=== PATIENT | female | born 1975 | race Caucasian/White ===

== ENCOUNTER 2023-03-29 10:05 | Outpatient (CLI) | payer BC, MEDICAID, SELFPAY ==
--- NOTE | 2023-03-29 10:24 | MM_ITS ---
WS: [email or web address] SCREENING DIGITAL BREAST TOMOSYNTHESIS MAMMOGRAM WITH CAD HISTORY: SCREENING COMPARISON: 01/23/2018 and 01/07/2017 Bilateral CC and MLO with tomosynthesis and synthetic mammography submitted. Computer aided detection analyzed. Breast composition: There are scattered areas of fibroglandular density. There is a new asymmetry minal suring 8 mm in the medial posterior RIGHT breast seen only on the CC projection. Otherwise RIGHT [address] is negative. There is a benign stable lymph node towards the axillary tail. LEFT breast is negativ e. IMPRESSION: MM/[place] [id number] BI-RADS: 0-Incomplete: Need additional imaging evaluation FOLLOW UP: Need Additional Imaging RIGHT breast: Spot compression views (CC and MLO). True ML. Ultrasound to follo w if abnormality persists. Attempt to get additional medial RIGHT breast on the MLO.
== END 2023-03-29 10:06 | disposition home or self-care (01) ==
PROVIDERS: PCP Family Medicine; Visit Provider Nurse Practitioner Women's Health
DX: Z12.31 Encounter for screening mammogram for malignant neoplasm of breast (principal); Z01.419 Encounter for gynecological examination (general) (routine) without abnormal findings
CPT/HCPCS: 77063; 77067; 87624

== ENCOUNTER → 2023-04-09 08:25 | Outpatient (BNVA) | payer BC, MEDICAID, SELFPAY | PROVIDERS: PCP Family Medicine; Visit Provider Nurse Practitioner Women's Health | DX: Z01.419 Encounter for gynecological examination (general) (routine) without abnormal findings (principal) | CPT/HCPCS: 80061; 82951; 84443 ==

== ENCOUNTER 2023-04-30 08:56 | Outpatient (CLI) | payer BC, MEDICAID, SELFPAY ==
--- NOTE | 2023-04-30 09:00 | MM_ITS ---
WS: [email or web address] ADDITIONAL VIEWS RIGHT MAMMOGRAM WITH DIGITAL BREAST TOMOSYNTHESIS. RIGHT BREAST ULTRASOUND HISTORY: R92.8 - Other abnormal and inconclusive findings on diagn... COMPARISON: 03/29/2023 and 01/23/2018 RIGHT MAMMOGRAM: Spot compression views and true ML with digital breast tomosynthesis and SM. Mass persists in the medial posterior RIGHT breast against the chest wall. Mass measures 7.6 mm and i s of increased density with mild lobulation. This mass was not present on the study from 2018. RIGHT BREAST ULTRASOUND 2-D and color Doppler imaging submitted. Very subtle hypoechoic mass is identified at 3:00, 3 cm from the nipple against the chest wall. Mass measures 6 x 6 x 4 mm. This is nearly isoechoic to the adjacent soft tissues. No increased vascularit y. As this is new biopsy should be obtained. IMPRESSION: MM/[place] [id number] BI-RADS: 4-Suspicious Finding-Biopsy Should Be Considered FOLLOW UP: Biopsy Recommended Ultrasound-guided biopsy recommended of the RIGHT breast mass at 3:00.
--- NOTE | 2023-04-30 09:30 | US_ITS ---
WS: [email or web address] ADDITIONAL VIEWS RIGHT MAMMOGRAM WITH DIGITAL BREAST TOMOSYNTHESIS. RIGHT BREAST ULTRASOUND HISTORY: R92.8 - Other abnormal and inconclusive findings on diagn... COMPARISON: 03/29/2023 and 01/23/2018 RIGHT MAMMOGRAM: Spot compression views and true ML with digital breast tomosynthesis and SM. Mass persists in the medial posterior RIGHT breast against the chest wall. Mass measures 7.6 mm and i s of increased density with mild lobulation. This mass was not present on the study from 2018. RIGHT BREAST ULTRASOUND 2-D and color Doppler imaging submitted. Very subtle hypoechoic mass is identified at 3:00, 3 cm from the nipple against the chest wall. Mass measures 6 x 6 x 4 mm. This is nearly isoechoic to the adjacent soft tissues. No increased vascularit y. As this is new biopsy should be obtained. IMPRESSION: US/US breast RT limited* [id number] BI-RADS: 4-Suspicious Finding-Biopsy Should Be Considered FOLLOW UP: Biopsy Recommended Ultrasound-guided biopsy recommended of the RIGHT breast mass at 3:00.
== END 2023-04-30 08:57 | disposition home or self-care (01) ==
PROVIDERS: PCP Family Medicine; Visit Provider Nurse Practitioner Women's Health
DX: R92.8 Other abnormal and inconclusive findings on diagnostic imaging of breast (principal)
CPT/HCPCS: 76642; 77061; G0279

== ENCOUNTER 2023-05-07 09:05 | Outpatient (CLI) | payer BC, MEDICAID, SELFPAY ==
--- NOTE | 2023-05-07 09:45 | US_ITS ---
WS: [email or web address] ULTRASOUND-GUIDED RIGHT BREAST BIOPSY HISTORY: Mass seen on recent screening mammogram. COMPARISON: 04/30/2023 and 03/29/2023 Procedure, risks and complications are explained to the patient. Medications are reviewed. Consent is obtained. The mass in the RIGHT breast is localized with ultrasound. Mass localizes to 3:00, 3 cm from the nipp le. This is a very vague mass and may be a small cluster of cysts. This is not a simple cyst. Skin is cleansed with ChloraPrep and anesthetized with 1% buffered lidocaine. Small dermatome is made. Under sterile conditions mass is biopsied with a 14-gauge Achieve needle. Multiple core biopsies are perfo rmed. Material placed in formalin and sent to pathology for review. No complications encountered. Breast tissue marker (Bkam ultrasound enhanced ribbon): None. Clip was not placed. The cystic mass co llapsed after the first biopsy. The site was not readily identified after the first biopsy. Post biopsy mammogram will be obtained also to ensure the mass that was biopsied by ultrasound corres ponds to the mammographic abnormality. Patient left the radiology suite with no complications. Patient is instructed to return to [facility] or [facility] with any concerns. IMPRESSION: 1. Limited core needle biopsy RIGHT breast mass at 3:00. After the initial biopsy this mass was no l onger identified and may be a cluster of cysts which collapsed. Unable to place a biopsy clip is the mass was not identified after the first biopsy. Post procedure mammogram will be performed to ensure the ultrasound and mammographic findings are concordant. US/[place] [id number] PATHOLOGY: Benign proliferative breast disease. Cyst formation with apocrine me taplasia surrounded by benign adipose tissue. No atypia or malignancy. RECOMMENDATION: 6-month diagnostic mammogram and possible ultrasound RIGHT [address].
--- NOTE | 2023-05-07 10:32 | MM_ITS ---
WS: [email or web address] DIAGNOSTIC RIGHT DIGITAL TOMOSYNTHESIS MAMMOGRAPHY WITH CAD. HISTORY: POST BX LUMP IMAGING, post ultrasound biopsy imaging. COMPARISON: 04/30/2023 and ultrasound 05/07/2023 Technique: CC and mediolateral. Spot compression views. Breast composition: Previously described mass in the posterior medial RIGHT breast contains a tract. This confirms the mammographic and ultrasound findings are concordant and this was the mass that was biopsied. This mass did not completely collapse. IMPRESSION: MM/[place] [id number] BI-RADS: 3-Probably Benign FOLLOW UP: 6 Month Follow-up 6-month diagnostic mammogram and ultrasound follow-up recommended. Please see t he RIGHT breast biopsy report.
== END 2023-05-07 09:06 | disposition home or self-care (01) ==
PROVIDERS: PCP Family Medicine; Visit Provider Nurse Practitioner Women's Health
DX: N64.89 Other specified disorders of breast (principal); N60.81 Other benign mammary dysplasias of right breast; N60.01 Solitary cyst of right breast; R92.8 Other abnormal and inconclusive findings on diagnostic imaging of breast
CPT/HCPCS: 19083; 77061; 88305; G0279

== ENCOUNTER 2023-11-05 08:53 | Outpatient (CLI) | payer BC, MEDICAID, SELFPAY ==
--- NOTE | 2023-11-05 08:59 | MM_ITS ---
WS: [email or web address] ADDITIONAL VIEWS RIGHT MAMMOGRAM WITH DIGITAL BREAST TOMOSYNTHESIS. RIGHT BREAST ULTRASOUND HISTORY: N63.10 - Unspecified lump in the right breast, unspecifie... COMPARISON: 05/07/2023, 03/29/2023 RIGHT MAMMOGRAM: Spot compression views and true ML with digital breast tomosynthesis and SM. Reidentified is a 4 mm asymmetry in the medial posterior RIGHT breast at the site of the previously d escribed mass. This mass collapsed during biopsy. Mass is much smaller in size as compared to the vinicius or study. No additional abnormality. RIGHT BREAST ULTRASOUND 2-D and color Doppler imaging submitted. No mass is identified in the RIGHT breast on the 3:00 axis. No solid or cystic mass. IMPRESSION: MM/[place] [id number] BI-RADS: 2-Benign FOLLOW UP: See Report No residual suspicious findings on the ultrasound. The small nodule seen on the mammography is much smaller in size than the original complex cyst size. Recom mend return to annual screening mammography.
--- NOTE | 2023-11-05 09:30 | US_ITS ---
WS: [email or web address] ADDITIONAL VIEWS RIGHT MAMMOGRAM WITH DIGITAL BREAST TOMOSYNTHESIS. RIGHT BREAST ULTRASOUND HISTORY: N63.10 - Unspecified lump in the right breast, unspecifie... COMPARISON: 05/07/2023, 03/29/2023 RIGHT MAMMOGRAM: Spot compression views and true ML with digital breast tomosynthesis and SM. Reidentified is a 4 mm asymmetry in the medial posterior RIGHT breast at the site of the previously d escribed mass. This mass collapsed during biopsy. Mass is much smaller in size as compared to the vinicius or study. No additional abnormality. RIGHT BREAST ULTRASOUND 2-D and color Doppler imaging submitted. No mass is identified in the RIGHT breast on the 3:00 axis. No solid or cystic mass. IMPRESSION: US/US breast RT limited* [id number] BI-RADS: 2-Benign FOLLOW UP: See Report No residual suspicious findings on the ultrasound. The small nodule seen on the mammography is much smaller in size than the original complex cyst size. Recom mend return to annual screening mammography.
== END 2023-11-05 08:54 | disposition home or self-care (01) ==
LOC: RAD 08:55
PROVIDERS: PCP Family Medicine; Visit Provider Nurse Practitioner Women's Health
DX: N63.10 Unspecified lump in the right breast, unspecified quadrant (principal)
CPT/HCPCS: 76642; 77061; G0279

== ENCOUNTER 2024-04-01 06:00 | Outpatient (CLI) | payer BC, MEDICAID, SELFPAY | END 2024-04-01 06:01 | disposition home or self-care (01) | LOC: RAD 04-15 06:43 | PROVIDERS: PCP Family Medicine; Visit Provider Nurse Practitioner Women's Health | DX: Z01.419 Encounter for gynecological examination (general) (routine) without abnormal findings (principal) | CPT/HCPCS: 87624 ==

== ENCOUNTER 2024-05-20 09:21 | Outpatient (CLI) | payer BC, MEDICAID, SELFPAY ==
--- NOTE | 2024-05-20 09:30 | MM_ITS ---
WS: [email or web address] BILATERAL SCREENING DIGITAL TOMOSYNTHESIS MAMMOGRAM WITH CAD HISTORY: Z12.31 - Encounter for screening mammogram for malignant ... COMPARISON: 11/05/2023, 05/07/2023, 01/23/2018 Bilateral CC and MLO views with tomosynthesis and synthetic mammography submitted. Computer aided det ection analyzed. Breast composition: There are scattered areas of fibroglandular density. No suspicious masses, microc alcifications or architectural distortion. Focal asymmetry in the medial posterior RIGHT breast has b een present on prior studies without increase in size. Mass actually measures smaller than on the ngo[place] dy of 03/29/2023. MM/MM scr [place] tomosynthesis [id number] IMPRESSION: BI-RADS: 2 - Benign. FOLLOW UP: 1 Year Follow-up
== END 2024-05-20 09:22 | disposition home or self-care (01) ==
LOC: RAD 09:22
PROVIDERS: PCP Family Medicine; Visit Provider Nurse Practitioner Women's Health
DX: Z12.31 Encounter for screening mammogram for malignant neoplasm of breast (principal); R92.323 Mammographic fibroglandular density, bilateral breasts; N64.89 Other specified disorders of breast
CPT/HCPCS: 77063; 77067

== ENCOUNTER 2025-05-24 09:29 | Outpatient (CLI) | payer BC, MEDICAID, SELFPAY ==
--- NOTE | 2025-05-24 09:33 | MM_ITS ---
WS: [email or web address] BILATERAL SCREENING DIGITAL TOMOSYNTHESIS MAMMOGRAM WITH CAD HISTORY: SCREENING COMPARISON: 05/20/2024, 03/29/2023, 11/05/2023 Bilateral CC and MLO views with tomosynthesis and synthetic mammography submitted. Computer aided detection analyzed. Breast composition: There are scattered areas of fibroglandular density. No suspicious masses, microcalcifications or architectural distortion. Long-term stability 6 mm mass in the superior posterior RIGHT breast which is probably a lymph node. MM/MM scr BI tomosynthesis [id number] IMPRESSION: BI-RADS: 2 - Benign. FOLLOW UP: 1 Year Follow-up
== END 2025-05-24 09:30 | disposition home or self-care (01) ==
LOC: RAD 09:31
PROVIDERS: PCP Nurse Practitioner Women's Health; Visit Provider Nurse Practitioner Women's Health
DX: Z12.31 Encounter for screening mammogram for malignant neoplasm of breast (principal); R92.323 Mammographic fibroglandular density, bilateral breasts; N63.12 Unspecified lump in the right breast, upper inner quadrant
CPT/HCPCS: 77063; 77067